=== PATIENT | female | born 1935 | race Caucasian/White ===

== ENCOUNTER 2017-03-28 22:33 | Emergency (ER) | payer MEDICARE, MEDICAID ==
[~2017-03-28] VITALS: Ht 160 cm; Wt 81.0 kg
[~2017-03-28 22:33] MED LIST: ACETAMIN325 MG PO; ALDACTONE25 MG OR; ALDACTONE25 MG PO; ALLOPURINOL100 MG PO; ANTIVERT12.5 MG PO; ASA LOW DOSE81 MG OR; ASPIRIN EC81 MG PO; ATORVASTATIN CA20 MG PO; AVELOX400 MG OR; CEPHALEXIN500 MG PO; CLONIDINE0.1 MG OR; CO Q-10 OR; CORDARONE/200 MG/TAB PO; COREG25 MG PO; COZAAR50 MG PO; DIABETA5 MG OR; DIGOXIN0.125 MG OR; DIGOXIN0.125 MG PO; DIOVAN80 MG PO; DOXYCYCL HYC100 MG PO; EC ASPIRIN325 M1 OR; FOLIC ACID1 MG PO; GLUCOPHAGE500 MG OR; HYDRALAZINE25 MG OR; HYDROCHLOROT12.5 MG OR; IMDUR30 MG OR; KLOR-CON M2020 MEQ PO; LANTUS SC; LANTUS100 MG/ML SC; LASIX 20 MG TAB20 MG PO; LASIX 20 MG20 MG/TAB PO; LASIX 40 MG TAB40 MG OR; LASIX 40 MG TAB40 MG PO; LASIX20 MG PO; LASIX40 MG OR; LEVEMIR SC; LIPITOR20 MG PO; LISINOP/HCTZ1 TA1 PO; LORTAB5 PO; MECLIZINE12.5 MG PO; METAMUCIL0.52 G1 PO; METOLAZONE5 MG PO; MONOCYCLINE; NIRAVAM0.5 MG OR; NITROSTAT0.4 MG SL; NORVASC10 MG OR; OMEPRAZOLE20 MG OR; OMEPRAZOLE40 MG PO; OXYGEN NAS; PERCOCET 5/325M1 TAB OR; PREDNISONE10 MG OR; PREDNISONE5 MG OR; PRILOSEC40 MG OR; PROCRIT IJ; SILVADENE1 % EX; SILVADENE1 % TOP; SPIRONOLACT25 MG PO; SYNTHROID OR; SYNTHROID100 MCG PO; SYNTHROID50 MCG PO; SYNTHROID75 MCG PO; TEKTURNA150 MG OR; TRAZODONE50 MG OR; TRICOR145 MG OR; ULORIC40 MG PO; VITAMIN D2000 UNIT PO; XANAX0.5 MG OR; XANAX0.5 MG PO; ZESTRIL20 MG OR; ZOLOFT100 MG PO; ZOLOFT50 MG PO; [UNRECOGNIZED DRUG - OTHER]
[2017-03-28] MEDS ORDERED: SPIRONOLACT25 MG PO (22:46)
[2017-03-28 23:38] LABS: HEMATOCRIT 39.9 % (37.0-47.0); IMMATURE GRANULOCYTES 0.6 % (0.0-1.0); MEAN CELL VOLUME 91.5 fL CALC (80.0-100.0); MEAN CORPUSCULAR HGB 27.5 pG CALC (26.0-32.0); MEAN CORPUSCULAR HGB CONC 30.1 g/L CALC (32.0-36.0); NEUT# 7.14 thou/uL (2.00-7.15); RED BLOOD COUNT 4.36 mill/uL (4.20-5.60); RED CELL DISTRI WIDTH 16.6 % (11.5-15.5)
[2017-03-28 23:52] LABS: ALBUMIN 4.2 g/dL (3.2-5.0); BILIRUBIN, TOTAL 1.1 mg/dL (0.0-1.4); CALCIUM 9.1 mg/dL (8.4-10.2); CREATININE 2.5 mg/dL (0.5-1.0); POTASSIUM 4.3 mmol/l (3.5-5.1); TOTAL PROTEIN 6.7 g/dL (6.3-8.2)
[2017-03-29] MEDS ORDERED: KEFLEX500 MG PO (00:27)
[2017-03-29 00:56] VITALS: BP 115/55
== END 2017-03-29 00:54 | disposition home or self-care (01) ==
LOC: ED 22:33
PROVIDERS: Emergency Medicine
DX: L03.115 Cellulitis of right lower limb (principal); E78.00 Pure hypercholesterolemia, unspecified; I11.0 Hypertensive heart disease with heart failure; I50.9 Heart failure, unspecified; N28.1 Cyst of kidney, acquired; G47.30 Sleep apnea, unspecified; E11.9 Type 2 diabetes mellitus without complications; I48.91 Unspecified atrial fibrillation; E03.9 Hypothyroidism, unspecified; R06.02 Shortness of breath; Z95.1 Presence of aortocoronary bypass graft; Z95.0 Presence of cardiac pacemaker; Z99.81 Dependence on supplemental oxygen

== ENCOUNTER 2017-06-13 11:09 | Inpatient (IN) | payer MEDICARE, MEDICAID ==
[~2017-06-13] VITALS: Ht 160 cm; Wt 80.4 kg
[2017-06-13] VITALS (18 sets, daily range): BP systolic 117–155; BP diastolic 45–83
[~2017-06-13 11:09] MED LIST changes: +KEFLEX500 MG PO; -SYNTHROID100 MCG PO; +SYNTHROID112 MCG PO
[2017-06-13 12:02] LABS: HEMATOCRIT 37.8 % (37.0-47.0); HEMOGLOBIN 11.5 g/dl (12.0-16.0); IMMATURE GRANULOCYTES 0.3 % (0.0-1.0); MEAN CELL VOLUME 92.4 fL CALC (80.0-100.0); MEAN CORPUSCULAR HGB 28.1 pG CALC (26.0-32.0); MEAN CORPUSCULAR HGB CONC 30.4 g/L CALC (32.0-36.0); NEUT# 5.62 thou/uL (2.00-7.15); RED BLOOD COUNT 4.09 mill/uL (4.20-5.60); RED CELL DISTRI WIDTH 15.8 % (11.5-15.5)
[2017-06-13 12:22] LABS: INTERNATIONAL NORMALIZED RATIO 1.1 RATIO (0.7-1.3)
[2017-06-13 12:24] LABS: ALBUMIN 3.8 g/dL (3.2-5.0); BILIRUBIN, TOTAL 1.1 mg/dL (0.0-1.4); CALCIUM 8.7 mg/dL (8.4-10.2); CREATININE 2.4 mg/dL (0.5-1.0); POTASSIUM 3.7 mmol/l (3.5-5.1); TOTAL PROTEIN 6.1 g/dL (6.3-8.2)
[2017-06-14] VITALS (15 sets, daily range): BP systolic 98–134; BP diastolic 47–70
[2017-06-14 06:45] LABS: HEMATOCRIT 35.6 % (37.0-47.0); HEMOGLOBIN 10.8 g/dl (12.0-16.0); IMMATURE GRANULOCYTES 0.5 % (0.0-1.0); MEAN CELL VOLUME 92.7 fL CALC (80.0-100.0); MEAN CORPUSCULAR HGB 28.1 pG CALC (26.0-32.0); MEAN CORPUSCULAR HGB CONC 30.3 g/L CALC (32.0-36.0); NEUT# 6.09 thou/uL (2.00-7.15); RED BLOOD COUNT 3.84 mill/uL (4.20-5.60); RED CELL DISTRI WIDTH 15.5 % (11.5-15.5)
[2017-06-14 07:10] LABS: CALCIUM 8.4 mg/dL (8.4-10.2); CREATININE 2.3 mg/dL (0.5-1.0); POTASSIUM 3.5 mmol/l (3.5-5.1)
[2017-06-15] VITALS (22 sets, daily range): BP systolic 108–150; BP diastolic 47–71
[2017-06-15 05:17] LABS: CREATININE 2.1 mg/dL (0.5-1.0); POTASSIUM 3.5 mmol/l (3.5-5.1)
[2017-06-15 05:58] LABS: HEMATOCRIT 34.5 % (37.0-47.0); HEMOGLOBIN 10.4 g/dl (12.0-16.0); IMMATURE GRANULOCYTES 0.5 % (0.0-1.0); MEAN CELL VOLUME 93.2 fL CALC (80.0-100.0); MEAN CORPUSCULAR HGB 28.1 pG CALC (26.0-32.0); MEAN CORPUSCULAR HGB CONC 30.1 g/L CALC (32.0-36.0); NEUT# 4.96 thou/uL (2.00-7.15); RED BLOOD COUNT 3.7 mill/uL (4.20-5.60); RED CELL DISTRI WIDTH 15.3 % (11.5-15.5)
[2017-06-16] VITALS (18 sets, daily range): BP systolic 86–152; BP diastolic 58–75
[2017-06-16 04:42] LABS: CALCIUM 8.3 mg/dL (8.4-10.2); CREATININE 2.1 mg/dL (0.5-1.0); POTASSIUM 3.6 mmol/l (3.5-5.1)
[2017-06-16 05:29] LABS: HEMOGLOBIN 10.8 g/dl (12.0-16.0); IMMATURE GRANULOCYTES 0.6 % (0.0-1.0); MEAN CELL VOLUME 92.8 fL CALC (80.0-100.0); MEAN CORPUSCULAR HGB 27.8 pG CALC (26.0-32.0); NEUT# 5.21 thou/uL (2.00-7.15); RED BLOOD COUNT 3.88 mill/uL (4.20-5.60); RED CELL DISTRI WIDTH 15.2 % (11.5-15.5)
[2017-06-17] VITALS (20 sets, daily range): BP systolic 114–149; BP diastolic 52–79
[2017-06-17 06:40] LABS: CALCIUM 8.2 mg/dL (8.4-10.2); CREATININE 1.8 mg/dL (0.5-1.0); POTASSIUM 3.5 mmol/l (3.5-5.1)
[2017-06-18] VITALS (15 sets, daily range): BP systolic 100–160; BP diastolic 52–80
[2017-06-18 04:35] LABS: HEMATOCRIT 37.4 % (37.0-47.0); HEMOGLOBIN 11.7 g/dl (12.0-16.0); IMMATURE GRANULOCYTES 0.6 % (0.0-1.0); MEAN CELL VOLUME 89.7 fL CALC (80.0-100.0); MEAN CORPUSCULAR HGB 28.1 pG CALC (26.0-32.0); MEAN CORPUSCULAR HGB CONC 31.3 g/L CALC (32.0-36.0); NEUT# 5.09 thou/uL (2.00-7.15); RED BLOOD COUNT 4.17 mill/uL (4.20-5.60); RED CELL DISTRI WIDTH 14.8 % (11.5-15.5)
[2017-06-18 04:35] LABS: URINE BILIRUBIN - DIPSTICK NEGATIVE (NEGATIVE); URINE BLOOD DIPSTICK NEGATIVE (NEGATIVE); URINE CLARITY CLEAR; URINE COLOR YELLOW; URINE GLUCOSE - DIPSTICK NEGATIVE (NEGATIVE); URINE KETONE NEGATIVE (NEGATIVE); URINE LEUK ESTERASE NEGATIVE (Negative); URINE NITRITE - DIPSTICK NEGATIVE (Negative); URINE PH 5.5 (4.5-8.0); URINE PROTEIN - DIPSTICK NEGATIVE (NEG-TRACE); URINE UROBILINOGEN - DIPSTICK 0.2 E.U./dL (0.2)
[2017-06-18 04:44] LABS: CALCIUM 8.7 mg/dL (8.4-10.2); CREATININE 1.8 mg/dL (0.5-1.0); POTASSIUM 3.6 mmol/l (3.5-5.1)
[2017-06-19 00:13] VITALS: BP 111/56
[2017-06-19 02:00] VITALS: BP 109/58
[2017-06-19 04:10] VITALS: BP 127/71
[2017-06-19 04:26] LABS: HEMATOCRIT 38.4 % (37.0-47.0); HEMOGLOBIN 11.7 g/dl (12.0-16.0); IMMATURE GRANULOCYTES 0.6 % (0.0-1.0); MEAN CELL VOLUME 90.1 fL CALC (80.0-100.0); MEAN CORPUSCULAR HGB 27.5 pG CALC (26.0-32.0); MEAN CORPUSCULAR HGB CONC 30.5 g/L CALC (32.0-36.0); NEUT# 3.78 thou/uL (2.00-7.15); RED BLOOD COUNT 4.26 mill/uL (4.20-5.60); RED CELL DISTRI WIDTH 14.8 % (11.5-15.5)
[2017-06-19 04:38] LABS: CALCIUM 8.6 mg/dL (8.4-10.2); CREATININE 1.8 mg/dL (0.5-1.0); POTASSIUM 3.3 mmol/l (3.5-5.1)
[2017-06-19 04:52] LABS: ALBUMIN 3.1 g/dL (3.2-5.0)
[2017-06-19 05:47] VITALS: BP 115/59
[2017-06-19 09:35] VITALS: BP 115/59
== END 2017-06-19 14:10 | disposition home health service (06) | DRG 291 ==
LOC: ENPENDDIS → ICU 11:09
PROVIDERS: Internal Medicine Nephrology; ADMIT Internal Medicine; ATTEND Internal Medicine
PROC: 02HV33Z Insertion of Infusion Device into Superior Vena Cava, Percutaneous Approach (ICD-10-PCS; principal; 2017-06-13)
PROC: B518ZZA Fluoroscopy of Superior Vena Cava, Guidance (ICD-10-PCS; 2017-06-13)
DX: I13.0 Hypertensive heart and chronic kidney disease with heart failure and stage 1 through stage 4 chronic kidney disease, or unspecified chronic kidney disease (principal); I50.23 Acute on chronic systolic (congestive) heart failure; J96.10 Chronic respiratory failure, unspecified whether with hypoxia or hypercapnia; E87.3 Alkalosis; N18.4 Chronic kidney disease, stage 4 (severe); E11.22 Type 2 diabetes mellitus with diabetic chronic kidney disease; I48.91 Unspecified atrial fibrillation; I25.10 Atherosclerotic heart disease of native coronary artery without angina pectoris; I25.5 Ischemic cardiomyopathy; I87.2 Venous insufficiency (chronic) (peripheral); D63.1 Anemia in chronic kidney disease; K59.00 Constipation, unspecified; E87.6 Hypokalemia; Z79.4 Long term (current) use of insulin; Z95.1 Presence of aortocoronary bypass graft; Z95.810 Presence of automatic (implantable) cardiac defibrillator
CPT/HCPCS: J1250

== ENCOUNTER 2017-08-21 11:39 | Inpatient (IN) | payer MEDICARE, MEDICAID ==
[~2017-08-21] VITALS: Ht 160 cm; Wt 89.6 kg
[2017-08-21] VITALS (20 sets, daily range): BP systolic 94–136; BP diastolic 50–76
[2017-08-21 15:38] LABS: ALBUMIN 3.7 g/dL (3.2-5.0); BILIRUBIN, TOTAL 1.1 mg/dL (0.0-1.4); CALCIUM 8.6 mg/dL (8.4-10.2); POTASSIUM 4.4 mmol/l (3.5-5.1); TOTAL PROTEIN 6.3 g/dL (6.3-8.2)
[2017-08-21 15:56] LABS: CREATININE 5.7 mg/dL (0.5-1.0)
[2017-08-21 15:59] LABS: HEMATOCRIT 39.3 % (37.0-47.0); HEMOGLOBIN 11.4 g/dl (12.0-16.0); IMMATURE GRANULOCYTES 0.6 % (0.0-1.0); MEAN CELL VOLUME 98.7 fL CALC (80.0-100.0); MEAN CORPUSCULAR HGB 28.6 pG CALC (26.0-32.0); NEUT# 3.87 thou/uL (2.00-7.15); RED BLOOD COUNT 3.98 mill/uL (4.20-5.60); RED CELL DISTRI WIDTH 18.2 % (11.5-15.5)
[2017-08-21 16:12] LABS: ALBUMIN 3.7 g/dL (3.2-5.0); CALCIUM 8.6 mg/dL (8.4-10.2); MAGNESIUM 2.1 mg/dL (1.6-2.3); POTASSIUM 4.5 mmol/l (3.5-5.1)
[2017-08-21 16:14] LABS: CREATININE 5.7 mg/dL (0.5-1.0)
[2017-08-21 16:23] LABS: URINE BLOOD DIPSTICK SMALL (NEGATIVE); URINE CLARITY CLOUDY; URINE COLOR YELLOW; URINE GLUCOSE - DIPSTICK 100 mg/dL (NEGATIVE); URINE KETONE TRACE mg/dL (NEGATIVE); URINE LEUK ESTERASE SMALL (Negative); URINE PROTEIN - DIPSTICK 100 mg/dL (NEG-TRACE); URINE SPECIFIC GRAVITY >=1.030
[2017-08-21 16:29] LABS: URINE BILIRUBIN - DIPSTICK NEGATIVE (NEGATIVE); URINE NITRITE - DIPSTICK NEGATIVE (Negative)
[2017-08-21 16:30] LABS: URINE BACTERIA RARE hpf; URINE EPITHELIAL CELLS RARE EPI/hpf (0-FEW)
[2017-08-22] VITALS (12 sets, daily range): BP systolic 106–116; BP diastolic 50–62
[2017-08-22 04:46] LABS: HEMATOCRIT 40.4 % (37.0-47.0); HEMOGLOBIN 11.5 g/dl (12.0-16.0); IMMATURE GRANULOCYTES 0.7 % (0.0-1.0); MEAN CELL VOLUME 97.3 fL CALC (80.0-100.0); MEAN CORPUSCULAR HGB 27.7 pG CALC (26.0-32.0); MEAN CORPUSCULAR HGB CONC 28.5 g/L CALC (32.0-36.0); NEUT# 5.58 thou/uL (2.00-7.15); RED BLOOD COUNT 4.15 mill/uL (4.20-5.60)
[2017-08-22 04:56] LABS: ALBUMIN 3.8 g/dL (3.2-5.0); CALCIUM 8.7 mg/dL (8.4-10.2); MAGNESIUM 2.1 mg/dL (1.6-2.3); POTASSIUM 4.4 mmol/l (3.5-5.1)
[2017-08-22 04:59] LABS: CREATININE 5.9 mg/dL (0.5-1.0)
== END 2017-08-22 19:45 | disposition short-term general hospital (02) | DRG 291 ==
LOC: ICU 11:39
PROVIDERS: Internal Medicine Nephrology; ADMIT Internal Medicine; ATTEND Internal Medicine
PROC: 05HB33Z Insertion of Infusion Device into Right Basilic Vein, Percutaneous Approach (ICD-10-PCS; principal; 2017-08-21)
PROC: B51MZZA Fluoroscopy of Right Upper Extremity Veins, Guidance (ICD-10-PCS; 2017-08-21)
DX: I13.0 Hypertensive heart and chronic kidney disease with heart failure and stage 1 through stage 4 chronic kidney disease, or unspecified chronic kidney disease (principal); I50.23 Acute on chronic systolic (congestive) heart failure; N18.4 Chronic kidney disease, stage 4 (severe); J96.10 Chronic respiratory failure, unspecified whether with hypoxia or hypercapnia; E11.22 Type 2 diabetes mellitus with diabetic chronic kidney disease; N17.9 Acute kidney failure, unspecified; I08.2 Rheumatic disorders of both aortic and tricuspid valves; I27.2 Other secondary pulmonary hypertension; I48.91 Unspecified atrial fibrillation; D63.1 Anemia in chronic kidney disease; I25.5 Ischemic cardiomyopathy; I87.2 Venous insufficiency (chronic) (peripheral); I25.118 Atherosclerotic heart disease of native coronary artery with other forms of angina pectoris; G47.33 Obstructive sleep apnea (adult) (pediatric); E03.9 Hypothyroidism, unspecified; Z95.810 Presence of automatic (implantable) cardiac defibrillator; Z95.1 Presence of aortocoronary bypass graft; Z79.4 Long term (current) use of insulin; Z95.2 Presence of prosthetic heart valve
CPT/HCPCS: J1250

== ENCOUNTER 2017-09-26 21:29 | Emergency (ER) | payer MEDICARE, MEDICAID ==
[~2017-09-26] VITALS: Ht 160 cm; Wt 73.1 kg
[2017-09-26 22:00] LABS: HEMATOCRIT 34.7 % (37.0-47.0); HEMOGLOBIN 10.4 g/dl (12.0-16.0); IMMATURE GRANULOCYTES 0.6 % (0.0-1.0); MEAN CELL VOLUME 98.3 fL CALC (80.0-100.0); MEAN CORPUSCULAR HGB 29.5 pG CALC (26.0-32.0); NEUT# 3.65 thou/uL (2.00-7.15); RED BLOOD COUNT 3.53 mill/uL (4.20-5.60); RED CELL DISTRI WIDTH 16.6 % (11.5-15.5)
[2017-09-26 22:13] LABS: ALBUMIN 4.2 g/dL (3.2-5.0); BILIRUBIN, TOTAL 1.1 mg/dL (0.0-1.4); CALCIUM 8.9 mg/dL (8.4-10.2); CREATININE 2.5 mg/dL (0.5-1.0); POTASSIUM 3.9 mmol/l (3.5-5.1); TOTAL PROTEIN 6.7 g/dL (6.3-8.2)
[2017-09-26] MEDS ORDERED: DYNACIN100 MG PO (22:13)
[2017-09-26 23:10] VITALS: BP 105/57
== END 2017-09-26 23:28 | disposition home or self-care (01) ==
LOC: ED 21:29
PROVIDERS: Emergency Medicine
DX: J06.9 Acute upper respiratory infection, unspecified (principal); I13.2 Hypertensive heart and chronic kidney disease with heart failure and with stage 5 chronic kidney disease, or end stage renal disease; E11.22 Type 2 diabetes mellitus with diabetic chronic kidney disease; N18.6 End stage renal disease; I50.9 Heart failure, unspecified; G47.30 Sleep apnea, unspecified; I48.91 Unspecified atrial fibrillation; E03.9 Hypothyroidism, unspecified; Z95.1 Presence of aortocoronary bypass graft; Z99.81 Dependence on supplemental oxygen; Z99.2 Dependence on renal dialysis; Z95.0 Presence of cardiac pacemaker; R06.02 Shortness of breath

== ENCOUNTER 2018-04-22 05:48 | Day surgery (SDC) | payer MEDICARE, MEDICAID ==
[~2018-04-22] VITALS: Ht 160 cm; Wt 70.3 kg
[~2018-04-22 05:48] MED LIST changes: +AMIODARONE200 MG PO; +CARVEDILOL6.25 MG PO; +DYNACIN100 MG PO; +LANTUS100 UNIT/M SC
[2018-04-22 09:21] VITALS: BP 88/52
[2018-04-22] MEDS ORDERED: TRAMADOL HCL50 MG PO (09:24)
== END 2018-04-22 09:50 | disposition home or self-care (01) ==
LOC: ORM 05:48
PROVIDERS: ATTEND Surgery
PROC: 0HBGXZZ Excision of Left Hand Skin, External Approach (ICD-10-PCS; principal; 2018-04-22)
PROC: 0HBEXZZ Excision of Left Lower Arm Skin, External Approach (ICD-10-PCS; 2018-04-22)
DX: C44.629 Squamous cell carcinoma of skin of left upper limb, including shoulder (principal); F41.9 Anxiety disorder, unspecified; F32.9 Major depressive disorder, single episode, unspecified; I12.0 Hypertensive chronic kidney disease with stage 5 chronic kidney disease or end stage renal disease; N18.6 End stage renal disease; Z99.2 Dependence on renal dialysis; Z95.810 Presence of automatic (implantable) cardiac defibrillator

== ENCOUNTER 2018-12-25 11:15 | Emergency (ER) | payer MEDICARE, MEDICAID ==
[~2018-12-25] VITALS: Ht 160 cm; Wt 75.0 kg
[~2018-12-25 11:15] MED LIST changes: +RANITIDINE 150150 MG PO; +TRAMADOL HCL50 MG PO; +TRAMADOL HYDROC50 MG PO; +VITAMIN D32000 UNIT PO
[2018-12-25 11:59] VITALS: BP 135/63
== END 2018-12-25 12:12 | disposition home or self-care (01) ==
LOC: ED 11:15
PROC: 0HQEXZZ Repair Left Lower Arm Skin, External Approach (ICD-10-PCS; principal; 2018-12-25)
DX: T82.838A Hemorrhage due to vascular prosthetic devices, implants and grafts, initial encounter (principal); I12.0 Hypertensive chronic kidney disease with stage 5 chronic kidney disease or end stage renal disease; N18.6 End stage renal disease; Y83.2 Surgical operation with anastomosis, bypass or graft as the cause of abnormal reaction of the patient, or of later complication, without mention of misadventure at the time of the procedure; Z99.2 Dependence on renal dialysis

== ENCOUNTER → 2019-01-12 | Outpatient (REF) | payer MEDICARE ==
[2019-01-12 07:42] LABS: HEMATOCRIT 35.2 % (37.0-47.0); IMMATURE GRANULOCYTES 0.4 % (0.0-5.0); MEAN CELL VOLUME 104.1 fL CALC (80.0-100.0); MEAN CORPUSCULAR HGB 32.5 pG CALC (26.0-32.0); MEAN CORPUSCULAR HGB CONC 31.3 g/L CALC (32.0-36.0); NEUT# 3.41 thou/uL (2.00-7.15); RED BLOOD COUNT 3.38 mill/uL (4.20-5.60); RED CELL DISTRI WIDTH 13.6 % (11.5-15.5)
[2019-01-12 08:09] LABS: ALBUMIN 4.5 g/dL (3.2-5.0); POTASSIUM 4.5 mmol/l (3.5-5.1); TOTAL PROTEIN 6.9 g/dL (6.3-8.2)
[2019-01-12 08:56] LABS: CREATININE 6.1 mg/dL (0.5-1.0)
== END | disposition home or self-care (01) ==
LOC: LAB 06:37
PROVIDERS: ATTEND Internal Medicine
DX: I10 Essential (primary) hypertension (principal); I50.22 Chronic systolic (congestive) heart failure; E11.29 Type 2 diabetes mellitus with other diabetic kidney complication

== ENCOUNTER → 2019-03-01 | Day surgery (SDC) | payer MEDICARE, MEDICAID ==
[~2019-03-01] VITALS: Ht 167.6 cm; Wt 80.3 kg
[2019-03-01 13:07] VITALS: BP 118/62
== END | disposition home or self-care (01) ==
LOC: ORM 09:31
PROVIDERS: ATTEND Surgery
PROC: 05HM33Z Insertion of Infusion Device into Right Internal Jugular Vein, Percutaneous Approach (ICD-10-PCS; principal; 2019-03-01)
PROC: B543ZZA Ultrasonography of Right Jugular Veins, Guidance (ICD-10-PCS; 2019-03-01)
DX: T82.898A Other specified complication of vascular prosthetic devices, implants and grafts, initial encounter (principal); I12.0 Hypertensive chronic kidney disease with stage 5 chronic kidney disease or end stage renal disease; N18.6 End stage renal disease; I25.10 Atherosclerotic heart disease of native coronary artery without angina pectoris; Y83.2 Surgical operation with anastomosis, bypass or graft as the cause of abnormal reaction of the patient, or of later complication, without mention of misadventure at the time of the procedure; Z95.0 Presence of cardiac pacemaker; Z99.2 Dependence on renal dialysis
CPT/HCPCS: Q9967

== ENCOUNTER 2019-11-28 | Emergency (ER) | payer MEDICARE, MEDICAID ==
[2019-11-28 23:22] LABS: HEMATOCRIT 36.4 % (37.0-47.0); HEMOGLOBIN 11.2 g/dl (12.0-16.0); IMMATURE GRANULOCYTES 0.5 % (0.0-5.0); MEAN CELL VOLUME 103.1 fL CALC (80.0-100.0); MEAN CORPUSCULAR HGB 31.7 pG CALC (26.0-32.0); MEAN CORPUSCULAR HGB CONC 30.8 g/L CALC (32.0-36.0); NEUT# 6.91 thou/uL (2.00-7.15); RED BLOOD COUNT 3.53 mill/uL (4.20-5.60); RED CELL DISTRI WIDTH 14.2 % (11.5-15.5)
[2019-11-28 23:39] LABS: ALBUMIN 4.7 g/dL (3.2-5.0); BILIRUBIN, TOTAL 0.8 mg/dL (0.0-1.4); TOTAL PROTEIN 7.7 g/dL (6.3-8.2)
[2019-11-28 23:45] LABS: CREATININE 9.8 mg/dL (0.5-1.0); POTASSIUM 5.7 mmol/l (3.5-5.1)
--- NOTE | 2019-12-01 07:57 | NUR ---
FINAL C+S FAXED TO [facility] [phone] NACHO VALERO IN 12/04 VIALS
== END 2019-11-29 04:59 ==
PROVIDERS: Emergency Medicine
DX: R06.02 Shortness of breath (principal); R50.9 Fever, unspecified; I12.0 Hypertensive chronic kidney disease with stage 5 chronic kidney disease or end stage renal disease; N18.6 End stage renal disease; D63.1 Anemia in chronic kidney disease; Z99.2 Dependence on renal dialysis

== ENCOUNTER 2020-07-22 05:46 | Emergency (ER) | payer MEDICARE, MEDICAID ==
[~2020-07-22] VITALS: Ht 167.6 cm; Wt 77.0 kg
[2020-07-22 06:58] LABS: HEMATOCRIT 36.7 % (37.0-47.0); HEMOGLOBIN 10.8 g/dl (12.0-16.0); IMMATURE GRANULOCYTES 0.4 % (0.0-5.0); MEAN CELL VOLUME 102.2 fL CALC (80.0-100.0); MEAN CORPUSCULAR HGB 30.1 pG CALC (26.0-32.0); MEAN CORPUSCULAR HGB CONC 29.4 g/dL CAL (32.0-36.0); NEUT# 3.63 thou/uL (2.00-7.15); RED BLOOD COUNT 3.59 mill/uL (4.20-5.60); RED CELL DISTRI WIDTH 14.6 % (11.5-15.5)
[2020-07-22 07:11] LABS: ALBUMIN 4.6 g/dL (3.2-5.0); BILIRUBIN, TOTAL 0.8 mg/dL (0.0-1.4); POTASSIUM 4.9 mmol/l (3.5-5.1); TOTAL PROTEIN 6.8 g/dL (6.3-8.2)
[2020-07-22 07:14] LABS: CREATININE 5.3 mg/dL (0.5-1.0)
[2020-07-22 07:17] LABS: ACT PARTIAL THROMBO TIME 23.8 SECONDS (20.0-32.5); PROTHROMBIN TIME 10.4 SECONDS (9.0-12.5)
[2020-07-22 07:52] VITALS: BP 141/73
== END 2020-07-22 07:45 | disposition home or self-care (01) ==
LOC: ED 05:46
PROVIDERS: Emergency Medicine
DX: T82.838A Hemorrhage due to vascular prosthetic devices, implants and grafts, initial encounter (principal); I12.0 Hypertensive chronic kidney disease with stage 5 chronic kidney disease or end stage renal disease; N18.6 End stage renal disease; Y83.8 Other surgical procedures as the cause of abnormal reaction of the patient, or of later complication, without mention of misadventure at the time of the procedure; Z99.2 Dependence on renal dialysis; Z95.1 Presence of aortocoronary bypass graft

== ENCOUNTER 2020-07-23 12:58 | Emergency (ER) | payer MEDICARE, MEDICAID ==
[~2020-07-23] VITALS: Ht 167.6 cm; Wt 73.0 kg
[2020-07-23 13:36] VITALS: BP 142/69
== END 2020-07-23 14:07 | disposition home or self-care (01) ==
LOC: ED 12:58
DX: T82.838A Hemorrhage due to vascular prosthetic devices, implants and grafts, initial encounter (principal); I12.0 Hypertensive chronic kidney disease with stage 5 chronic kidney disease or end stage renal disease; N18.6 End stage renal disease; Y83.8 Other surgical procedures as the cause of abnormal reaction of the patient, or of later complication, without mention of misadventure at the time of the procedure; Z99.2 Dependence on renal dialysis

== ENCOUNTER 2021-12-08 15:44 | Emergency (ER) | payer MEDICARE ==
[~2021-12-08] VITALS: Ht 160 cm; Wt 75.0 kg
[2021-12-08 20:37] LABS: HEMATOCRIT 36.2 % (37.0-47.0); HEMOGLOBIN 10.9 g/dl (12.0-16.0); IMMATURE GRANULOCYTES 0.3 % (0.0-5.0); MEAN CELL VOLUME 100.8 fL CALC (80.0-100.0); MEAN CORPUSCULAR HGB 30.4 pG CALC (26.0-32.0); MEAN CORPUSCULAR HGB CONC 30.1 g/dL CAL (32.0-36.0); NEUT# 10.76 thou/uL (2.00-7.15); RED BLOOD COUNT 3.59 mill/uL (4.20-5.60)
[2021-12-08 20:51] LABS: ALBUMIN 4.1 g/dL (3.2-5.0); BILIRUBIN, TOTAL 0.9 mg/dL (0.0-1.4); POTASSIUM 4.7 mmol/l (3.5-5.1); TOTAL PROTEIN 6.5 g/dL (6.3-8.2)
[2021-12-08 20:57] LABS: CREATININE 6.8 mg/dL (0.5-1.0)
[2021-12-08] MEDS ORDERED: BACTRIM DS1 TAB PO ×2 (23:09→23:12)
[2021-12-08] MEDS ORDERED: KEFLEX500 MG PO ×2 (23:09→23:12)
[2021-12-08 23:16] VITALS: BP 128/76
== END 2021-12-08 23:25 | disposition left against medical advice (07) ==
LOC: ED 15:44 → ED-I 22:39 → ED 23:25
PROVIDERS: Emergency Medicine
DX: L03.115 Cellulitis of right lower limb (principal); I12.0 Hypertensive chronic kidney disease with stage 5 chronic kidney disease or end stage renal disease; E11.22 Type 2 diabetes mellitus with diabetic chronic kidney disease; N18.6 End stage renal disease; Z91.19 Patient's noncompliance with other medical treatment and regimen; Z99.2 Dependence on renal dialysis; Z95.0 Presence of cardiac pacemaker; Z20.822 Contact with and (suspected) exposure to COVID-19

== ENCOUNTER 2022-01-21 17:53 | Emergency (ER) | payer MEDICARE, MEDICAID ==
[~2022-01-21] VITALS: Ht 160 cm; Wt 72.0 kg
[~2022-01-21 17:53] MED LIST changes: +ACETAMIN500 M2 PO; +BACTRIM DS1 TAB PO; +METOPROL TAR25 MG PO; +MIDODRINE HYDROC5 MG PO; +ONDANSETRON4 MG PO
[2022-01-21 19:08] LABS: HEMATOCRIT 39.1 % (37.0-47.0); HEMOGLOBIN 11.9 g/dl (12.0-16.0); IMMATURE GRANULOCYTES 0.4 % (0.0-5.0); MEAN CELL VOLUME 101.8 fL CALC (80.0-100.0); MEAN CORPUSCULAR HGB CONC 30.4 g/dL CAL (32.0-36.0); NEUT# 9.11 thou/uL (2.00-7.15); RED BLOOD COUNT 3.84 mill/uL (4.20-5.60)
[2022-01-21 20:22] LABS: ALBUMIN 4.1 g/dL (3.2-5.0); BILIRUBIN, TOTAL 0.9 mg/dL (0.0-1.4); TOTAL PROTEIN 6.3 g/dL (6.3-8.2)
[2022-01-21 20:24] LABS: CREATININE 5.5 mg/dL (0.5-1.0); POTASSIUM 4.3 mmol/l (3.5-5.1)
[2022-01-21] MEDS ORDERED: AMOXICILLIN/PO500 MG PO (21:05)
[2022-01-21 22:00] VITALS: BP 137/66
== END 2022-01-21 22:20 | disposition home or self-care (01) ==
LOC: ED 17:53
PROVIDERS: Emergency Medicine
DX: L03.116 Cellulitis of left lower limb (principal); L03.115 Cellulitis of right lower limb; E11.22 Type 2 diabetes mellitus with diabetic chronic kidney disease; I12.0 Hypertensive chronic kidney disease with stage 5 chronic kidney disease or end stage renal disease; N18.6 End stage renal disease; Z99.2 Dependence on renal dialysis

== ENCOUNTER 2022-03-01 01:20 | Emergency (ER) | payer MEDICARE, MEDICAID ==
[~2022-03-01] VITALS: Ht 160 cm; Wt 72.0 kg
[~2022-03-01 01:20] MED LIST changes: +AMOXICILLIN/PO500 MG PO
[2022-03-01 01:30] VITALS: BP 133/72
[2022-03-01 02:24] LABS: HEMOGLOBIN 11.1 g/dl (12.0-16.0); IMMATURE GRANULOCYTES 0.7 % (0.0-5.0); MEAN CELL VOLUME 102.4 fL CALC (80.0-100.0); MEAN CORPUSCULAR HGB 29.9 pG CALC (26.0-32.0); MEAN CORPUSCULAR HGB CONC 29.2 g/dL CAL (32.0-36.0); NEUT# 5.04 thou/uL (2.00-7.15); RED BLOOD COUNT 3.71 mill/uL (4.20-5.60); RED CELL DISTRI WIDTH 14.6 % (11.5-15.5)
[2022-03-01 03:20] LABS: ALBUMIN 4.1 g/dL (3.2-5.0); BILIRUBIN, TOTAL 1.1 mg/dL (0.0-1.4); POTASSIUM 4.4 mmol/l (3.5-5.1); TOTAL PROTEIN 6.7 g/dL (6.3-8.2)
[2022-03-01 03:22] LABS: CREATININE 6.9 mg/dL (0.5-1.0)
== END 2022-03-01 03:44 | disposition home or self-care (01) ==
LOC: ED 01:20
PROVIDERS: Emergency Medicine
DX: R06.00 Dyspnea, unspecified (principal); I13.2 Hypertensive heart and chronic kidney disease with heart failure and with stage 5 chronic kidney disease, or end stage renal disease; E11.22 Type 2 diabetes mellitus with diabetic chronic kidney disease; N18.6 End stage renal disease; I50.9 Heart failure, unspecified; J44.9 Chronic obstructive pulmonary disease, unspecified; Z99.2 Dependence on renal dialysis; Z95.0 Presence of cardiac pacemaker

== ENCOUNTER 2022-08-29 13:01 | Observation (INO) | payer MEDICARE, MEDICAID ==
[~2022-08-29] VITALS: Ht 160 cm; Wt 74.2 kg
--- NOTE | 2022-08-29 13:25 | NUR ---
PATIENT ALERT AND ORIENTED TIMES 3 PATIENT DENIES ANY PAIN OR SOB AT THIS TIME
[2022-08-29 14:08] LABS: HEMATOCRIT 36.4 % (37.0-47.0); HEMOGLOBIN 11.4 g/dl (12.0-16.0); IMMATURE GRANULOCYTES 0.2 % (0.0-5.0); MEAN CELL VOLUME 102.8 fL CALC (80.0-100.0); MEAN CORPUSCULAR HGB 32.2 pG CALC (26.0-32.0); MEAN CORPUSCULAR HGB CONC 31.3 g/dL CAL (32.0-36.0); NEUT# 2.82 thou/uL (2.00-7.15); RED BLOOD COUNT 3.54 mill/uL (4.20-5.60); RED CELL DISTRI WIDTH 14.5 % (11.5-15.5)
[2022-08-29 14:19] LABS: ALBUMIN 4.4 g/dL (3.2-5.0); BILIRUBIN, TOTAL 0.8 mg/dL (0.0-1.4); POTASSIUM 3.7 mmol/l (3.5-5.1); TOTAL PROTEIN 6.8 g/dL (6.3-8.2)
--- NOTE | 2022-08-29 14:30 | NUR ---
AWAITING RESULTS PATIENT IN STABLE CONDITION
--- NOTE | 2022-08-29 15:30 | NUR ---
Reassessment of patient completed. No distress noted.
--- NOTE | 2022-08-29 16:30 | NUR ---
Reassessment of patient completed. No distress noted.
--- NOTE | 2022-08-29 17:30 | NUR ---
Reassessment of patient completed. No distress noted.
[2022-08-29 17:45] VITALS: BP 131/61
--- NOTE | 2022-08-29 17:45 | NUR ---
PATIENT ADMITTED AT THIS TIME
--- NOTE | 2022-08-29 17:45 | NUR ---
pt received to ANR suite for dialysis, via wc accompanied by caregiver in stable condition; procedure explained; admission assessment completed at this time; pt alert and oriented; denies pain; resp even and unlabored; lungs clear; skin color wnl o2 sat 85%, pt normally wears 2L NC O2 at HS and PRN; o2 placed at 2L; murmur present; wk pedal pulses; edema noted; plan of care explained; will continue to monitor
--- NOTE | 2022-08-29 18:36 | NUR ---
Dialysis started per Juan Antonio Calderon RN;
--- NOTE | 2022-08-29 19:30 | NUR ---
awake in recliner; caregiver at side; pt offers no complaints; tolerating dialysis well; no apparent distress noted; will continue to monitor
--- NOTE | 2022-08-29 20:54 | NUR ---
dialysis completed per Juan Antonio Calderon RN; deaccessed; pt tolerated treatment well; no apparent distress noted;
--- NOTE | 2022-08-29 21:05 | NUR ---
Patient decides to leave AMA. Pt also encouraged to return to [facility] at any time, especially if symptoms continue or become worse. Pt verbalized understanding.
== END 2022-08-29 21:05 | disposition left against medical advice (07) ==
LOC: ED 13:01 → WW 13:01 → ED 13:35 → ED-I 13:35 → ED 14:25 → MS2 14:26
PROVIDERS: Family Medicine; Nurse Practitioner; ADMIT Internal Medicine; ATTEND Internal Medicine
PROC: 5A1D70Z Performance of Urinary Filtration, Intermittent, Less than 6 Hours Per Day (ICD-10-PCS; principal; 2022-08-29)
DX: I13.2 Hypertensive heart and chronic kidney disease with heart failure and with stage 5 chronic kidney disease, or end stage renal disease (principal); E11.22 Type 2 diabetes mellitus with diabetic chronic kidney disease; N18.6 End stage renal disease; I50.9 Heart failure, unspecified; D63.1 Anemia in chronic kidney disease; N25.81 Secondary hyperparathyroidism of renal origin; Z99.2 Dependence on renal dialysis; J96.10 Chronic respiratory failure, unspecified whether with hypoxia or hypercapnia; E11.51 Type 2 diabetes mellitus with diabetic peripheral angiopathy without gangrene; I87.2 Venous insufficiency (chronic) (peripheral); F41.9 Anxiety disorder, unspecified; Z95.1 Presence of aortocoronary bypass graft; Z95.810 Presence of automatic (implantable) cardiac defibrillator; Z20.822 Contact with and (suspected) exposure to COVID-19

== ENCOUNTER 2022-10-21 20:03 | Inpatient (IN) | payer MEDICARE, MEDICAID ==
[2022-10-21] VITALS (12 sets, daily range): BP systolic 79–113; BP diastolic 36–61
[~2022-10-21] VITALS: Ht 160 cm; Wt 80.0 kg
[2022-10-21 20:56] LABS: IMMATURE GRANULOCYTES 1.6 % (0.0-5.0); MEAN CELL VOLUME 101.8 fL CALC (80.0-100.0); MEAN CORPUSCULAR HGB 31.4 pG CALC (26.0-32.0); MEAN CORPUSCULAR HGB CONC 30.9 g/dL CAL (32.0-36.0); NEUT# 4.17 thou/uL (2.00-7.15); RED BLOOD COUNT 2.8 mill/uL (4.20-5.60); RED CELL DISTRI WIDTH 15.7 % (11.5-15.5)
[2022-10-21 21:08] LABS: HEMATOCRIT 28.5 % (37.0-47.0); HEMOGLOBIN 8.8 g/dl (12.0-16.0)
[2022-10-21 21:15] LABS: POTASSIUM 3.4 mmol/l (3.5-5.1)
[2022-10-21 21:18] LABS: ALBUMIN 3.1 g/dL (3.2-5.0); CREATININE 5.3 mg/dL (0.5-1.0); D-DIMER 1.61 mg/L (0.19-0.60); TOTAL PROTEIN 5.2 g/dL (6.3-8.2)
[2022-10-21 21:21] LABS: INTERNATIONAL NORMALIZED RATIO 1.2 RATIO (0.7-1.3); PROTHROMBIN TIME 11.7 SECONDS (9.0-12.5)
[2022-10-22] VITALS (153 sets, daily range): BP systolic 77–122; BP diastolic 31–70
[2022-10-22 04:51] LABS: MAGNESIUM 1.8 mg/dL (1.6-2.3)
[2022-10-22 04:55] LABS: HEMOGLOBIN 7.6 g/dl (12.0-16.0); MEAN CORPUSCULAR HGB CONC 30.4 g/dL CAL (32.0-36.0); RED BLOOD COUNT 2.45 mill/uL (4.20-5.60); RED CELL DISTRI WIDTH 15.9 % (11.5-15.5)
[2022-10-22 05:06] LABS: ALBUMIN 2.4 g/dL (3.2-5.0)
[2022-10-22 05:07] LABS: CREATININE 5.3 mg/dL (0.5-1.0)
[2022-10-23] VITALS (80 sets, daily range): BP systolic 70–120; BP diastolic 27–74
[2022-10-23 07:07] LABS: ALBUMIN 2.4 g/dL (3.2-5.0); CREATININE 4.4 mg/dL (0.5-1.0); POTASSIUM 3.7 mmol/l (3.5-5.1)
[2022-10-23 07:10] LABS: HEMATOCRIT 30.2 % (37.0-47.0); HEMOGLOBIN 9.2 g/dl (12.0-16.0); MEAN CELL VOLUME 100.3 fL CALC (80.0-100.0); MEAN CORPUSCULAR HGB 30.6 pG CALC (26.0-32.0); MEAN CORPUSCULAR HGB CONC 30.5 g/dL CAL (32.0-36.0); RED BLOOD COUNT 3.01 mill/uL (4.20-5.60); RED CELL DISTRI WIDTH 17.1 % (11.5-15.5)
[2022-10-24] VITALS (44 sets, daily range): BP systolic 85–107; BP diastolic 33–57
[2022-10-24 05:29] LABS: HEMOGLOBIN 8.6 g/dl (12.0-16.0); MEAN CELL VOLUME 101.1 fL CALC (80.0-100.0); MEAN CORPUSCULAR HGB CONC 30.7 g/dL CAL (32.0-36.0); RED BLOOD COUNT 2.77 mill/uL (4.20-5.60); RED CELL DISTRI WIDTH 17.6 % (11.5-15.5)
[2022-10-24 05:42] LABS: PLATELET COUNT 44 thou/uL (130-400)
[2022-10-24 06:00] LABS: ALBUMIN 2.4 g/dL (3.2-5.0); CREATININE 3.8 mg/dL (0.5-1.0); POTASSIUM 3.8 mmol/l (3.5-5.1)
[2022-10-24 08:59] LABS: MANUAL DIFFERENTIAL YES
[2022-10-24 09:13] LABS: BAND 4 % (0-8)
[2022-10-25] VITALS (148 sets, daily range): BP systolic 68–143; BP diastolic 28–96
[2022-10-25 05:02] LABS: HEMATOCRIT 30.3 % (37.0-47.0); HEMOGLOBIN 9.2 g/dl (12.0-16.0); MEAN CELL VOLUME 101.3 fL CALC (80.0-100.0); MEAN CORPUSCULAR HGB 30.8 pG CALC (26.0-32.0); MEAN CORPUSCULAR HGB CONC 30.4 g/dL CAL (32.0-36.0); RED CELL DISTRI WIDTH 18.2 % (11.5-15.5)
[2022-10-25 05:29] LABS: CREATININE 4.7 mg/dL (0.5-1.0)
[2022-10-25 09:03] LABS: RED BLOOD COUNT 2.99 mill/uL (4.20-5.60)
[2022-10-26] VITALS (83 sets, daily range): BP systolic 79–133; BP diastolic 34–66
[2022-10-26 05:44] LABS: HEMATOCRIT 31.5 % (37.0-47.0); HEMOGLOBIN 9.7 g/dl (12.0-16.0); MEAN CELL VOLUME 100.6 fL CALC (80.0-100.0); MEAN CORPUSCULAR HGB CONC 30.8 g/dL CAL (32.0-36.0); NEUT# 9.22 thou/uL (2.00-7.15); RED BLOOD COUNT 3.13 mill/uL (4.20-5.60); RED CELL DISTRI WIDTH 18.3 % (11.5-15.5)
[2022-10-26 05:48] LABS: ALBUMIN 2.7 g/dL (3.2-5.0); BILIRUBIN, TOTAL 1.2 mg/dL (0.0-1.4); CREATININE 4.4 mg/dL (0.5-1.0); MAGNESIUM 1.5 mg/dL (1.6-2.3); POTASSIUM 3.8 mmol/l (3.5-5.1); TOTAL PROTEIN 4.4 g/dL (6.3-8.2)
== END 2022-10-26 20:41 | disposition short-term general hospital (02) | DRG 308 ==
LOC: ED 20:03 → ED-I 21:33 → ED 21:44 → ICU 21:45
PROVIDERS: Family Medicine; ADMIT Internal Medicine; ATTEND Internal Medicine
PROC: 5A1D70Z Performance of Urinary Filtration, Intermittent, Less than 6 Hours Per Day (ICD-10-PCS; principal; 2022-10-22)
PROC: 30243N1 Transfusion of Nonautologous Red Blood Cells into Central Vein, Percutaneous Approach (ICD-10-PCS; 2022-10-22)
PROC: 06HY33Z Insertion of Infusion Device into Lower Vein, Percutaneous Approach (ICD-10-PCS; 2022-10-22)
PROC: 5A1D70Z Performance of Urinary Filtration, Intermittent, Less than 6 Hours Per Day (ICD-10-PCS; 2022-10-23)
PROC: 5A1D70Z Performance of Urinary Filtration, Intermittent, Less than 6 Hours Per Day (ICD-10-PCS; 2022-10-25)
DX: I48.91 Unspecified atrial fibrillation (principal); A41.9 Sepsis, unspecified organism; N18.6 End stage renal disease; R57.1 Hypovolemic shock; R57.0 Cardiogenic shock; I12.0 Hypertensive chronic kidney disease with stage 5 chronic kidney disease or end stage renal disease; J96.11 Chronic respiratory failure with hypoxia; N25.81 Secondary hyperparathyroidism of renal origin; E87.1 Hypo-osmolality and hyponatremia; E11.22 Type 2 diabetes mellitus with diabetic chronic kidney disease; E87.6 Hypokalemia; D63.1 Anemia in chronic kidney disease; D69.6 Thrombocytopenia, unspecified; G47.00 Insomnia, unspecified; I25.10 Atherosclerotic heart disease of native coronary artery without angina pectoris; I87.2 Venous insufficiency (chronic) (peripheral); Z99.81 Dependence on supplemental oxygen; Z99.2 Dependence on renal dialysis; Z95.2 Presence of prosthetic heart valve; Z95.810 Presence of automatic (implantable) cardiac defibrillator; Z20.822 Contact with and (suspected) exposure to COVID-19
CPT/HCPCS: J0282; J0692; J1644; J3475; P9016; P9047; Q5106 EC